=== PATIENT | female | born 1995 | race Caucasian/White ===

== ENCOUNTER 2018-04-14 07:49 | Emergency (ER) | payer MEDICAID ==
[~2018-04-14] VITALS: Ht 162.6 cm; Wt 56.4 kg
[2018-04-14 07:52] VITALS: TEMP 98.1
[2018-04-14 08:18] LABS: COLLECTION METHOD CLEAN CATCH
[2018-04-14 08:24] LABS: MUCOUS Present /lpf; PH 6 (5-8); URINE APPEARANCE Hazy; URINE BACTERIA None Seen /hpf; URINE BILIRUBIN Negative (NEGATIVE); URINE BLOOD Negative (NEGATIVE); URINE COLOR Yellow; URINE GLUCOSE Negative (NEGATIVE); URINE KETONE Negative (NEGATIVE); URINE LEUKOCYTE ESTERASE Negative (NEGATIVE); URINE NITRATE Negative (NEGATIVE); URINE PROTEIN(semi-quant) Negative (NEGATIVE); URINE RBC 0-2 /hpf; URINE UROBILINOGEN Negative (NEGATIVE)
[2018-04-14 08:40] LABS: BASO % 0.4 % (0.0-2.0); EOS # 0.2 (0.0-0.7); EOS % 2.4 % (0-4.0); GRAN # 4.8 (1.4-6.5); GRAN % 61.2 % (42.2-75.2); HEMATOCRIT 38.6 % (37.0-47.0); HEMOGLOBIN 12.6 g/dl (12.5-16.0); LYMPH # 2.4 (1.2-3.4); LYMPH % 31.1 % (20.0-51.0); MEAN CELL VOLUME 90 fl (80.0-100.0); MEAN CORPUSCULAR HEMOGLOBIN 29 pg (27.0-31.0); MEAN CORPUSCULAR HGB CONC 33 g/dl (33.0-37.0); MEAN PLATELET VOLUME 10.5 fl (7.4-10.4); MONO # 0.4 (0.1-0.6); MONO % 4.5 % (1.7-9.3); PLATELET COUNT 240 K/mm3 (130-400); RED BLOOD COUNT 4.29 M/mm3 (4.10-5.30)
[2018-04-14 08:58] LABS: ALANINE AMINOTRANSFERASE 19 U/L (9-52); ALBUMIN 4.1 gm/dL (3.5-5.0); ALKALINE PHOSPHATASE 60 U/L (50-136); ANION GAP 6 mmol/L (7-16); AST,SGOT 21 U/L (15-37); BILIRUBIN,TOTAL 0.4 mg/dL (0.0-1.0); BLOOD UREA NITROGEN 11 mg/dL (7-17); CALCIUM 9.3 mg/dL (8.4-10.2); CARBON DIOXIDE 26 mmol/L (22-30); CHLORIDE 103 mmol/L (98-107); CREATININE, serum 0.66 mg/dL (0.52-1.25); GLUCOSE 86 mg/dL (74-106); POTASSIUM 4.2 mmol/L (3.4-5.0); SODIUM 135 mmol/L (137-145); TOTAL PROTEIN 7.4 gm/dL (6.4-8.2)
[2018-04-14 08:59] LABS: C-REACTIVE PROTEIN < 0.5 mg/dL (0.0-0.9)
[2018-04-14 09:40] LABS: HCG,QUANTITATIVE 193400 mIU/mL (0-5)
[2018-04-14 11:06] VITALS: BP 122/66; PULSE 62
== END 2018-04-14 11:07 | disposition home or self-care (01) ==
LOC: COL.ER 07:49
PROVIDERS: Nurse Practitioner
DX: O26.891 Other specified pregnancy related conditions, first trimester (principal); R10.32 Left lower quadrant pain; M54.5 Low back pain; Z3A.08 8 weeks gestation of pregnancy

== ENCOUNTER 2019-01-06 19:44 | Emergency (ER) | payer MEDICAID ==
[~2019-01-06] VITALS: Ht 162.6 cm; Wt 59.1 kg
[2019-01-06 19:52] VITALS: BP 115/58; TEMP 98.4
[2019-01-06 20:27] LABS: COLLECTION METHOD CLEAN CATCH
[2019-01-06 20:37] LABS: BASO % 0.2 % (0.0-2.0); EOS # 0.2 (0.0-0.7); EOS % 1.8 % (0-4.0); GRAN # 6.7 (1.4-6.5); GRAN % 68.2 % (42.2-75.2); HEMOGLOBIN 11.5 g/dl (12.5-16.0); LYMPH # 2.4 (1.2-3.4); LYMPH % 24.9 % (20.0-51.0); MEAN CELL VOLUME 92 fl (80.0-100.0); MEAN CORPUSCULAR HEMOGLOBIN 30 pg (27.0-31.0); MEAN CORPUSCULAR HGB CONC 33 g/dl (33.0-37.0); MEAN PLATELET VOLUME 10.9 fl (7.4-10.4); MONO # 0.5 (0.1-0.6); MONO % 4.6 % (1.7-9.3); PLATELET COUNT 260 K/mm3 (130-400); RED BLOOD COUNT 3.81 M/mm3 (4.10-5.30); REDCELL DISTRIBUTION WIDTH-CV 13.3 % (11.5-14.5)
[2019-01-06 20:38] LABS: HEMATOCRIT 35.2 % (37.0-47.0)
[2019-01-06 20:39] LABS: MUCOUS Present /lpf; PH 7 (5-8); URINE APPEARANCE Clear; URINE BACTERIA None Seen /hpf; URINE BILIRUBIN Negative (NEGATIVE); URINE BLOOD Negative (NEGATIVE); URINE COLOR Yellow; URINE GLUCOSE Negative (NEGATIVE); URINE KETONE Negative (NEGATIVE); URINE LEUKOCYTE ESTERASE Negative (NEGATIVE); URINE NITRATE Negative (NEGATIVE); URINE PROTEIN(semi-quant) Negative (NEGATIVE); URINE RBC 0-2 /hpf; URINE UROBILINOGEN Negative (NEGATIVE)
[2019-01-06 20:47] LABS: ALANINE AMINOTRANSFERASE < 6 U/L (9-52); ALBUMIN 3.8 gm/dL (3.5-5.0); ALKALINE PHOSPHATASE 64 U/L (50-136); ANION GAP 8 mmol/L (7-16); AST,SGOT 19 U/L (15-37); BILIRUBIN,TOTAL < 0.1 mg/dL (0.0-1.0); BLOOD UREA NITROGEN 9 mg/dL (7-17); CALCIUM 8.9 mg/dL (8.4-10.2); CARBON DIOXIDE 24 mmol/L (22-30); CHLORIDE 105 mmol/L (98-107); GLUCOSE 93 mg/dL (74-106); POTASSIUM 3.9 mmol/L (3.4-5.0); SODIUM 137 mmol/L (137-145); TOTAL PROTEIN 7.1 gm/dL (6.4-8.2)
[2019-01-06 20:48] LABS: C-REACTIVE PROTEIN < 0.5 mg/dL (0.0-0.9)
[2019-01-06 21:51] VITALS: PULSE 70
== END 2019-01-06 21:51 | disposition home or self-care (01) ==
LOC: COL.ER 19:44
PROVIDERS: Emergency Medicine
DX: O26.892 Other specified pregnancy related conditions, second trimester (principal); R10.2 Pelvic and perineal pain; Z3A.19 19 weeks gestation of pregnancy
CPT/HCPCS: J7030

== ENCOUNTER 2019-04-15 16:13 | Outpatient (CLI) | payer MEDICAID ==
[~2019-04-15] VITALS: Ht 162.6 cm; Wt 70.5 kg
--- NOTE | 2019-04-15 16:20 | NUR ---
PATIENT HERE TO LR 5. PATIENT COMPLAINS FO FALLING DOWN STAIRS AT HOME ON BACK. PATIENT IN GOWN, ON EFM, VITALS OBTAINED. ASSESMENT COMPLETE. PATIENTS MOTHER AND DAIGHTER WITH PATIENT. PATIENT DENIES CONTRACTIONS, LEAKING OF FLUID OR BLEEDING
[2019-04-15 16:26] VITALS: BP 128/61; PULSE 86; TEMP 98
[2019-04-15] MEDS ORDERED: PRENATAL (16:26)
[2019-04-15] MEDS ORDERED: NATURAL IRON65 MG (16:26)
[2019-04-15 16:45] VITALS: BP 128/61; PULSE 86; TEMP 98
[2019-04-15 17:15] VITALS: BP 110/56; PULSE 88
== END 2019-04-18 18:21 ==
LOC: LDRO 16:13 → LDR 04-18 18:21
DX: O9A.213 Injury, poisoning and certain other consequences of external causes complicating pregnancy, third trimester (principal); W10.9XXA Fall (on) (from) unspecified stairs and steps, initial encounter; Y92.009 Unspecified place in unspecified non-institutional (private) residence as the place of occurrence of the external cause; Z3A.32 32 weeks gestation of pregnancy
CPT/HCPCS: OP

== ENCOUNTER 2019-04-18 17:38 | Outpatient (CLI) | payer MEDICAID ==
[~2019-04-18] VITALS: Ht 162.6 cm; Wt 72.3 kg
[~2019-04-18 17:38] MED LIST: NATURAL IRON65 MG; PRENATAL
[2019-04-18 18:19] VITALS: BP 110/60; PULSE 78; TEMP 97.8
--- NOTE | 2019-04-18 18:20 | NUR ---
1800 G3L1 at 33.2 weeks gestation to LDR6 with c/o decreased movement. Patient changed into gown and wedged left in bed. EFMs explained and applied. FHR 140 bpm and reactive. Irregular CTX per toco, patient denies feeling them. Patient denies leaking of fluid or vaginal bleeding. VSS. 1820 Dr. Cooper on unit, reviews FHR tracing, orders to discharge home received. Patient off EFM, discharge instructions reviewed.
== END 2019-04-18 18:21 | disposition home or self-care (01) ==
LOC: LDRO 17:38
DX: O36.8131 Decreased fetal movements, third trimester, fetus 1 (principal); Z3A.33 33 weeks gestation of pregnancy